=== PATIENT | male | born 1990 | race American Indian/Alaskan Native ===

== ENCOUNTER 2017-05-03 11:53 | Emergency (ER) | payer SELFPAY ==
[2017-05-03 12:10] VITALS: BP 126/74
--- NOTE | 2017-05-03 14:19 | Emergency Department Report ---
Blank Doc - Documentation Documentation: Patient is a 27-year-old [place]ian male who is presented with chest pain with disc discomfort with breathing and moving for the last day. Patient doesn't have a lifting with his job. EKG is within normal limits x-ray will be ordered at this time patient will be reassessed
--- NOTE | 2017-05-03 14:59 | XRay Report ---
ROUTINE CHEST, TWO VIEWS: HISTORY: Cough. The trachea, heart, mediastinal contour, lung morton and bony thorax are unremarkable. IMPRESSION: Unremarkable chest x-ray.
--- NOTE | 2017-05-03 16:29 | Emergency Department Report ---
HPI - General Chief Complaint: Chest Pain Time Seen by Provider: 05/03/17 13:24 - HPI HPI: Patient is a 27-year-old Cypriot male who is presented with chest pain with disc discomfort with breathing and moving for the last day. Patient does have heavy lifting with his job. Patient states that his pain is on his left side and is started this morning and said he had some shortness of breath with it but he has no shortness of breath now. Patient was told that he had an irregular heart rhythm in the past. Pain is 7 out of 10 and feels sharp on and off. Located under his armpit. Denies any nausea or vomiting. Denies any fever or chills. Denies any swelling to his chest wall. Did not take any pain medication. Pain is worse with touch and movement bed or resting. Patient does not have any risk factor for pulmonary embolism based on my questioning in HPI. No hemoptysis, no cough and period. ED Past Medical Hx - Past Medical History Previous Medical History?: Yes Hx Congestive Heart Failure: No Hx Diabetes: No Hx Asthma: No Hx COPD: No Additional medical history: irreg. heart beat - Surgical History Past Surgical History?: Yes Additional Surgical History: RIGHT ANKLE. HERNIA REPAIR - Family History Family history: no significant - Social History Smoking Status: Current Every Day Smoker Substance Use Type: Alcohol - Medications Home Medications: Home Medications Medication Instructions Recorded Confirmed Last Taken Type Aspirin [Aspirin TAB] 325 mg PO DAILY #30 tablet 05/24/14 Unknown Rx Metoprolol [Lopressor TAB] 25 mg PO BID #60 tablet 05/24/14 Unknown Rx Famotidine [Pepcid] 20 mg PO BID #30 tablet 02/26/15 Unknown Rx Naproxen 500 mg PO Q12H PRN #12 tablet 05/03/17 Unknown Rx ED Review of Systems ROS: Stated complaint: CHEST PAIN Other details as noted in HPI Comment: All other systems reviewed and negative Constitutional: no symptoms reported ENT: denies: throat pain Respiratory: see HPI, shortness of breath (occasional shortness of breath which has resolved.). denies: cough, orthopnea, SOB with exertion, SOB at rest, stridor, wheezing Cardiovascular: chest pain. denies: palpitations, dyspnea on exertion, edema, syncope, paroxysmal nocturnal dyspnea Gastrointestinal: denies: abdominal pain, nausea, vomiting, constipation, hematemesis, hematochezia Genitourinary: denies: urgency, dysuria, frequency, hematuria, discharge, testicular pain, testicular mass Musculoskeletal: denies: back pain, joint swelling, arthralgia, myalgia Skin: denies: rash Neurological: denies: headache, numbness, paresthesias, confusion, abnormal gait , vertigo Psychiatric: denies: anxiety Physical Exam - Physical Exam Vital Signs: Vital Signs 05/03/17 12:06 Temperature 98.1 F Pulse Rate 65 Respiratory 16 Rate Blood Pressure 126/74 O2 Sat by Pulse 100 Oximetry General: This is a 27-year-old male well-nourished well-developed in no acute distress. Physical Exam: Head: Normocephalic, atraumatic, no abrasion, no bruising and no contusion. Eyes: Biateral pupils equal and reactive to light, bilateral EOM intact.. Bilateral conjunctival and sclera without injection, normal accommodation. No nystagmus Mouth: Moist, no pharyngeal exudate or erythema. No peritonsillar abscesses. Uvula is midline and oral airways patent. Neck: Supple, No Cervical adenopathy, full range of motion and no C-spine tenderness. No swelling or tracheal deviation normal reflexes Cardiovascular: S1, S2. Regular rate and rhythm. No murmur. Capillary refill is less then 3 seconds. Lungs: Clear to auscultate bilaterally. No rhonchi, wheezes or rales. TTP left chest lateral, mid axilla. No chest contusion. No bruising to chest. MSK: Strength 5/5 in all extremities. No joint deformity or crepitus. Normal inspection. Full range of motion to all extremities. No laceration, abrasion or ecchymotic area noted. Patient able to fully flex and extend bilateral knees without any difficulties. Bilateral knees nontender to palpate. Abdomen: Non-tender to palpate in all quadrants, no guarding or rebound tenderness, positive bowel sounds in all quadrants. No CVA tenderness. No hernia, bruit or mass. No rigidity or distention. Extremities: No clubbing, cyanosis or edema. +2 pulses. No neurovascular compromise Skin: Clean, dry and intact. No rash or lesions. Back: No vertebral tenderness, no paraspinal tenderness. Ambulates without any difficulties. Psych: Normal mood and behavior ED Course Vital Signs 05/03/17 12:06 Temperature 98.1 F Pulse Rate 65 Respiratory 16 Rate Blood Pressure 126/74 O2 Sat by Pulse 100 Oximetry - Reevaluation(s) Reevaluation #1: 05/03/17 16:38 Patient stable throughout ED stay. Chest pain is reproducible. No episode of shortness of breath in emergency room ED Medical Decision Making - EKG Data -: EKG Interpreted by Me (attending physician) EKG shows normal: sinus rhythm (sinus arrhythmia at 67 bpm) Rate: normal - EKG Data Interpretation: no acute changes, normal EKG - Radiology Data Radiology results: report reviewed Chest x-ray reveals no acute findings - Medical Decision Making ED Course: patient presents with left chest pain and some shortness of breath, none in ED. Physical eam normal excep TTP left CW. Xray and EKG normal findings except EKG with SA which is stable. Patient Heart risk score is low and PERC rule does not require diagnostics because patient risk for PE is 0. I explained diagnosis, EKG and xray findings with patient and he voiced understanding. Patient discharge home with prescription for Naproxen for costochondritis and to follow up with PCP and cardiology. Critical care attestation.: If time is entered above; I have spent that time in minutes in the direct care of this critically ill patient, excluding procedure time. ED Disposition Clinical Impression: Atypical chest pain, Acute costochondritis Disposition: DC-01 TO HOME OR SELFCARE Is pt being admited?: No Does the pt Need Aspirin: No Condition: Stable Instructions: Chest Pain (ED), Costochondritis (ED) Additional Instructions: Please see discharge instructions on referral to primary care physician and cardiology. Take naproxen and this will help with your chest wall pain. Prescriptions: Naproxen 500 mg PO Q12H PRN #12 tablet PRN Reason: Pain Referrals: [facility] [Outside] - 2-3 Days JONEL MELENDEZ MD [Staff Physician] - 2-3 Days Forms: Work/School Release Form(ED)
== END 2017-05-03 16:49 | disposition home or self-care (01) ==
LOC: ED 11:53
DX: M94.0 Chondrocostal junction syndrome [Tietze] (principal); R07.89 Other chest pain; F17.200 Nicotine dependence, unspecified, uncomplicated; Z79.82 Long term (current) use of aspirin
CPT/HCPCS: 71046; 93005; 93010

== ENCOUNTER 2018-06-03 05:04 | Emergency (ER) | payer OTHER ==
[2018-06-03] MEDS ORDERED: SUBLIMAZE IV ONE (06:40)
[2018-06-03] MEDS ORDERED: ZOFRAN IV ONE (06:40)
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
[2018-06-03 07:49] LABS: Basophils % (Auto) 0.3 % (0.0-1.8); Eosinophils % (Auto) 0.1 % (0.0-4.3); Hematocrit 41.1 % (35.5-45.6); Hemoglobin 14.2 gm/dl (11.8-15.2); Lymphocytes # (Auto) 0.5 K/mm3 (1.2-5.4); Lymphocytes % (Auto) 5.1 % (13.4-35.0); Mean Corpuscular HGB Conc 35 % (32-34); Mean Corpuscular Volume 89 fl (84-94); Monocytes # (Auto) 0.5 K/mm3 (0.0-0.8); Monocytes % (Auto) 5.5 % (0.0-7.3); Platelet Count 173 K/mm3 (140-440); Red Cell Distribution Width 13.1 % (13.2-15.2)
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
[2018-06-03 08:08] LABS: Alanine Aminotransferase 21 units/L (7-56); Albumin 4.7 g/dL (3.9-5); BUN/Creatinine Ratio 14; Blood Urea Nitrogen 11 mg/dL (9-20); Calcium 9.4 mg/dL (8.4-10.2); Hemolysis Index 6
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
[2018-06-03 10:48] VITALS: BP 132/72
== END 2018-06-03 10:48 | disposition home or self-care (01) ==
LOC: ED 05:04
DX: S16.1XXA Strain of muscle, fascia and tendon at neck level, initial encounter (principal); S20.20XA Contusion of thorax, unspecified, initial encounter; S40.011A Contusion of right shoulder, initial encounter; S50.12XA Contusion of left forearm, initial encounter; S30.1XXA Contusion of abdominal wall, initial encounter; R51 Headache; F12.10 Cannabis abuse, uncomplicated; Z91.013 Allergy to seafood; V47.5XXA Car driver injured in collision with fixed or stationary object in traffic accident, initial encounter; Y93.89 Activity, other specified; Y92.410 Unspecified street and highway as the place of occurrence of the external cause; Y99.8 Other external cause status
CPT/HCPCS: 36415; 70450; 71275; 72125; 73030; 73090; 74177; 80053; 85025; 96374; 96375; 99285; J2405; J3010; Q9967